=== PATIENT | male | born 2000 | race Caucasian/White ===

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

== ENCOUNTER 2021-01-16 23:43 | Emergency (ER) | payer OTHER ==
[~2021-01-16] VITALS: Ht 170.1 cm; Wt 95.3 kg
[2021-01-16] MEDS ORDERED: ABILIFY MAINTE400 MG IM (23:56)
[2021-01-17] MEDS ORDERED: CEPHALEXIN500 M1 PO (00:25)
== END 2021-01-17 00:39 | disposition home or self-care (01) ==
LOC: ED 23:43
DX: L60.0 Ingrowing nail (principal); G43.909 Migraine, unspecified, not intractable, without status migrainosus; Z91.018 Allergy to other foods; Z91.012 Allergy to eggs; Z79.899 Other long term (current) drug therapy; Z98.890 Other specified postprocedural states

== ENCOUNTER 2021-04-03 05:35 | Emergency (ER) | payer OTHER ==
[~2021-04-03] VITALS: Ht 170.1 cm; Wt 97.5 kg
[~2021-04-03 05:35] MED LIST changes: +ABILIFY MAINTE400 MG IM; +CEPHALEXIN500 M1 PO
[2021-04-03] MEDS ORDERED: PREDNISONE20 M1 PO (06:08)
[2021-04-03] MEDS ORDERED: ZOFRAN4 MG PO (06:08)
[2021-04-03] MEDS ORDERED: AUGMENTIN 875875 MG PO (06:08)
== END 2021-04-03 06:32 | disposition home or self-care (01) ==
LOC: ED 05:35
DX: J01.90 Acute sinusitis, unspecified (principal); R11.0 Nausea; Z79.899 Other long term (current) drug therapy; Z98.890 Other specified postprocedural states

== ENCOUNTER 2021-04-04 15:01 | Emergency (ER) | payer OTHER ==
[~2021-04-04] VITALS: Ht 170.1 cm; Wt 97.5 kg
[~2021-04-04 15:01] MED LIST changes: +PREDNISONE20 M1 PO; +ZOFRAN4 MG PO
[2021-04-04 16:15] LABS: BUN 16 mg/dl (7-24); CHLORIDE 108 mmol/L (98-107); CREATININE 0.91 mg/dL (0.70-1.30); POTASSIUM 4.5 mmol/L (3.5-5.1); SODIUM 140 mmol/L (136-145)
[2021-04-04 16:44] LABS: BASO % 0.2 % (0.0-1.0); HEMATOCRIT 45.4 % (42.0-52.0); LYMPH # 1.3 10*3/uL (1.3-4.4); LYMPH % 12.8 % (27.0-41.0); MEAN CELL VOLUME 84.7 fl (80.0-94.0); MEAN CORPUSCULAR HGB 29.3 pg (27.0-31.0); MEAN CORPUSCULAR HGB CONC 34.6 g/dl (33.0-37.0); MEAN PLATELET VOLUME 10.1 fl (9.6-12.3); MONO # 0.6 10*3/uL (0.1-1.0); MONO % 6.1 % (3.0-9.0); NEUT # 8.1 10*3/uL (2.3-7.9); NEUT % 80.6 % (47.0-73.0); PLATELET COUNT AUTOMATED 254 10*3/uL (130-400); RED BLOOD COUNT 5.36 10*6/uL (4.50-5.90); RED CELL DISTRI WIDTH 12.1 % (0-14.5); WHITE BLOOD COUNT 10.1 10*3/uL (4.8-10.8)
== END 2021-04-04 17:40 | disposition home or self-care (01) ==
LOC: ED 15:01
PROVIDERS: Internal Medicine
DX: J01.90 Acute sinusitis, unspecified (principal); Z91.012 Allergy to eggs; Z91.018 Allergy to other foods; Z79.2 Long term (current) use of antibiotics; Z79.899 Other long term (current) drug therapy; Z96.22 Myringotomy tube(s) status

== ENCOUNTER 2021-05-12 07:33 | Emergency (ER) | payer OTHER ==
[~2021-05-12] VITALS: Ht 175.2 cm; Wt 86.2 kg
[2021-05-12 08:24] LABS: BASO % 0.6 % (0.0-1.0); EOS % 0.2 % (1.0-4.0); HEMATOCRIT 46.7 % (42.0-52.0); LYMPH # 1.2 10*3/uL (1.3-4.4); LYMPH % 25.8 % (27.0-41.0); MEAN CELL VOLUME 86.2 fl (80.0-94.0); MEAN CORPUSCULAR HGB 29.2 pg (27.0-31.0); MEAN CORPUSCULAR HGB CONC 33.8 g/dl (33.0-37.0); MEAN PLATELET VOLUME 9.9 fl (9.6-12.3); MONO # 0.3 10*3/uL (0.1-1.0); MONO % 6.9 % (3.0-9.0); NEUT # 3.2 10*3/uL (2.3-7.9); NEUT % 66.3 % (47.0-73.0); PLATELET COUNT AUTOMATED 214 10*3/uL (130-400); RED BLOOD COUNT 5.42 10*6/uL (4.50-5.90); WHITE BLOOD COUNT 4.8 10*3/uL (4.8-10.8)
[2021-05-12 08:39] LABS: ALBUMIN 4.3 gm/dl (3.1-4.5); ALKALINE PHOSPHATASE 85 U/L (45-117); BUN 16 mg/dl (7-24); CHLORIDE 106 mmol/L (98-107); CREATININE 0.85 mg/dL (0.70-1.30); POTASSIUM 4.3 mmol/L (3.5-5.1); SGOT/AST 24 IU/L (3-35); SGPT/ALT 53 U/L (12-78); SODIUM 135 mmol/L (136-145); TOTAL PROTEIN 8.2 gm/dL (6.4-8.2)
== END 2021-05-12 09:38 | disposition home or self-care (01) ==
LOC: ED 07:33
PROVIDERS: Emergency Medicine
DX: J32.9 Chronic sinusitis, unspecified (principal); Z91.012 Allergy to eggs; Z91.018 Allergy to other foods; Z79.899 Other long term (current) drug therapy; Z79.2 Long term (current) use of antibiotics; Z96.22 Myringotomy tube(s) status

== ENCOUNTER 2021-05-29 05:14 | Emergency (ER) | payer OTHER ==
[~2021-05-29] VITALS: Ht 175.2 cm; Wt 96.7 kg
[2021-05-29 06:00] LABS: BASO % 0.4 % (0.0-1.0); EOS # 0.1 10*3/uL (0.0-0.4); EOS % 1.8 % (1.0-4.0); MEAN CELL VOLUME 87.5 fl (80.0-94.0); MEAN CORPUSCULAR HGB 29.4 pg (27.0-31.0); MEAN CORPUSCULAR HGB CONC 33.6 g/dl (33.0-37.0); MONO # 0.5 10*3/uL (0.1-1.0); MONO % 10.1 % (3.0-9.0); NEUT # 1.9 10*3/uL (2.3-7.9); NEUT % 43.5 % (47.0-73.0); PLATELET COUNT AUTOMATED 191 10*3/uL (130-400); RED BLOOD COUNT 5.14 10*6/uL (4.50-5.90); WHITE BLOOD COUNT 4.5 10*3/uL (4.8-10.8)
[2021-05-29 06:05] LABS: ALBUMIN 3.8 gm/dl (3.1-4.5); ALKALINE PHOSPHATASE 83 U/L (45-117); BUN 14 mg/dl (7-24); CHLORIDE 109 mmol/L (98-107); CPK 124 U/L (39-308); CREATININE 0.84 mg/dL (0.70-1.30); LIPASE 132 U/L (73-393); POTASSIUM 4.1 mmol/L (3.5-5.1); SGOT/AST 20 IU/L (3-35); SGPT/ALT 43 U/L (12-78); SODIUM 138 mmol/L (136-145); TOTAL PROTEIN 7.5 gm/dL (6.4-8.2)
== END 2021-05-29 06:40 | disposition home or self-care (01) ==
LOC: ED 05:14
PROVIDERS: Internal Medicine
DX: R10.11 Right upper quadrant pain (principal); Z79.899 Other long term (current) drug therapy; Z91.012 Allergy to eggs

== ENCOUNTER 2021-07-18 11:17 | Emergency (ER) | payer OTHER ==
[~2021-07-18] VITALS: Ht 170.1 cm; Wt 90.7 kg
== END 2021-07-18 21:38 | disposition left against medical advice (07) ==
LOC: ED 11:17
DX: N50.819 Testicular pain, unspecified (principal); Z53.21 Procedure and treatment not carried out due to patient leaving prior to being seen by health care provider

== ENCOUNTER 2021-12-13 19:34 | Emergency (ER) | payer OTHER | END 2021-12-13 20:56 | disposition home or self-care (01) | LOC: ED 19:34 | DX: G43.909 Migraine, unspecified, not intractable, without status migrainosus (principal); Z91.012 Allergy to eggs; Z91.018 Allergy to other foods ==

== ENCOUNTER 2022-01-07 05:20 | Emergency (ER) | payer OTHER ==
[~2022-01-07] VITALS: Ht 170.1 cm; Wt 90.7 kg
[2022-01-07] MEDS ORDERED: ZIPRASIDONE HCL20 M1 PO (06:12)
== END 2022-01-07 06:49 | disposition home or self-care (01) ==
LOC: ED
DX: J06.9 Acute upper respiratory infection, unspecified (principal); Z20.822 Contact with and (suspected) exposure to COVID-19; Z91.012 Allergy to eggs; Z91.018 Allergy to other foods; Z79.899 Other long term (current) drug therapy; Z79.2 Long term (current) use of antibiotics; Z96.22 Myringotomy tube(s) status

== ENCOUNTER 2022-01-30 12:52 | Emergency (ER) | payer OTHER ==
[~2022-01-30] VITALS: Ht 170.1 cm; Wt 95.3 kg
[~2022-01-30 12:52] MED LIST changes: +ZIPRASIDONE HCL20 M1 PO
== END 2022-01-30 14:04 | disposition home or self-care (01) ==
LOC: ED 12:52
DX: S86.012A Strain of left Achilles tendon, initial encounter (principal); Z79.899 Other long term (current) drug therapy; X58.XXXA Exposure to other specified factors, initial encounter; Y93.89 Activity, other specified; Y92.89 Other specified places as the place of occurrence of the external cause; Y99.8 Other external cause status

== ENCOUNTER 2022-02-23 20:34 | Emergency (ER) | payer OTHER ==
[~2022-02-23] VITALS: Ht 172.7 cm; Wt 97.5 kg
== END 2022-02-23 21:54 | disposition home or self-care (01) ==
LOC: ED 20:34
DX: G43.909 Migraine, unspecified, not intractable, without status migrainosus (principal); Z79.899 Other long term (current) drug therapy

== ENCOUNTER 2022-06-05 20:00 | Emergency (ER) | payer OTHER ==
[~2022-06-05] VITALS: Wt 90.7 kg
== END 2022-06-05 21:07 | disposition home or self-care (01) ==
LOC: ED 20:00
DX: S60.221A Contusion of right hand, initial encounter (principal); Z79.899 Other long term (current) drug therapy; W23.0XXA Caught, crushed, jammed, or pinched between moving objects, initial encounter; Y93.89 Activity, other specified; Y92.89 Other specified places as the place of occurrence of the external cause; Y99.9 Unspecified external cause status

== ENCOUNTER 2022-06-15 13:50 | Emergency (ER) | payer OTHER ==
[2022-06-15] MEDS ORDERED: ATARAX,VISTARIL10 MG PO (13:58)
== END 2022-06-15 15:09 | disposition home or self-care (01) ==
LOC: ED 13:50
DX: G43.009 Migraine without aura, not intractable, without status migrainosus (principal); Z79.899 Other long term (current) drug therapy; Z79.2 Long term (current) use of antibiotics; Z96.22 Myringotomy tube(s) status

== ENCOUNTER 2022-06-23 15:13 | Emergency (ER) | payer OTHER ==
[~2022-06-23 15:13] MED LIST changes: +ATARAX,VISTARIL10 MG PO
== END 2022-06-23 16:00 | disposition left against medical advice (07) ==
LOC: ED 15:13
DX: R51.9 Headache, unspecified (principal); Z53.21 Procedure and treatment not carried out due to patient leaving prior to being seen by health care provider

== ENCOUNTER → 2022-07-16 | Outpatient (CLI) | payer OTHER | END | disposition home or self-care (01) | LOC: RAD 12:11 | PROVIDERS: ATTEND Physical Therapist | DX: R05.9 Cough, unspecified (principal); M43.9 Deforming dorsopathy, unspecified ==

== ENCOUNTER → 2022-07-20 | Outpatient (CLI) | payer OTHER ==
[~2022-07-20] MED LIST changes: +GEODON20 MG PO
== END | disposition home or self-care (01) ==
LOC: CARD 02:41
PROVIDERS: ATTEND Internal Medicine Cardiovascular Disease
DX: R94.31 Abnormal electrocardiogram [ECG] [EKG] (principal)

== ENCOUNTER → 2022-07-21 | Outpatient (CLI) | payer OTHER | END | disposition home or self-care (01) | LOC: CARD 13:23 | PROVIDERS: ATTEND Family Medicine | DX: I35.8 Other nonrheumatic aortic valve disorders (principal); R94.31 Abnormal electrocardiogram [ECG] [EKG] ==

== ENCOUNTER 2022-11-01 07:11 | Emergency (ER) | payer OTHER ==
[~2022-11-01] VITALS: Ht 170.1 cm; Wt 95.3 kg
[2022-11-01] MEDS ORDERED: Motrin,Rufen800 MG PO (11:02)
[2022-11-01] MEDS ORDERED: PHENERGAN25 M3 PO (11:02)
[2022-11-01] MEDS ORDERED: ZITHROMAX250 MG PO (11:02)
== END 2022-11-01 11:17 | disposition home or self-care (01) ==
LOC: ED 07:11
DX: J06.9 Acute upper respiratory infection, unspecified (principal); Z20.822 Contact with and (suspected) exposure to COVID-19; Z79.899 Other long term (current) drug therapy

== ENCOUNTER 2023-04-26 13:22 | Emergency (ER) | payer OTHER ==
[~2023-04-26] VITALS: Ht 172.7 cm; Wt 81.6 kg
[~2023-04-26 13:22] MED LIST changes: +Motrin,Rufen800 MG PO; +PHENERGAN25 M3 PO; +ZITHROMAX250 MG PO
[2023-04-26] MEDS ORDERED: BACITRACIN28.4 GM TD (13:40)
[2023-04-26] MEDS ORDERED: XEROFORM PETRO1 EAC2 TD (13:40)
== END 2023-04-26 14:00 | disposition home or self-care (01) ==
LOC: ED 13:22
DX: T22.212A Burn of second degree of left forearm, initial encounter (principal); F90.9 Attention-deficit hyperactivity disorder, unspecified type; G43.909 Migraine, unspecified, not intractable, without status migrainosus; Z98.890 Other specified postprocedural states; T31.0 Burns involving less than 10% of body surface; X08.8XXA Exposure to other specified smoke, fire and flames, initial encounter; Y93.89 Activity, other specified; Y92.89 Other specified places as the place of occurrence of the external cause; Y99.8 Other external cause status